=== PATIENT | male | born 1995 | race Caucasian/White ===

== ENCOUNTER 2018-11-17 11:42 | Emergency (ER) | payer OTHER, SELFPAY ==
[2018-11-17] VITALS (32 sets, daily range): BP systolic 117–150; BP diastolic 50–83; PULSE 61–87; RESP 10–27; TEMP 37; O2SAT 94–100
--- NOTE | 2018-11-17 12:04 | DI.CT_ITS ---
EXAM: CT HEAD WO CLINICAL HISTORY: altered mentation. TECHNIQUE: Imaging Protocol: Axial computed tomography images with coronal and sagittal reformatted images were created and reviewed COMPARISON: No exams were available for comparison FINDINGS: The ventricular system is normal in appearance. No evidence of acute intracranial hemorrhage, mass effect, or midline shift. The orbital structures are unremarkable. The temporal bone structures appear intact. Calvarium: Normal. Visualized Paranasal sinuses/Mastoids: Clear. IMPRESSION: Normal cranial CT. DATA REPOSITORY: All CT scans at this facility are submitted to the National Radiology Data Registry (NRDR) Dose Index Registry (DIR) with the [employer] (A[employer]). RADIATION OPTIMIZATION: All CT scans at this facility use at least one of these dose optimization te chniques: automated exposure control; mA and/or kV adjustment per patient size (includes targeted exa ms where dose is matched to clinical indication); or iterative reconstruction.
--- NOTE | 2018-11-17 12:04 | DI.RAD_ITS ---
EXAM: XR PORTABLE CHEST AP INDICATION: altered mentation, post 2 chest compression. COMPARISON: No exams were available for comparison TECHNIQUE: 2D digital imaging was performed. FINDINGS: The heart is not enlarged. The lungs are clear and expanded. No pleural effusion seen. No pneumoth orax seen. IMPRESSION: No evidence of acute process.
--- NOTE | 2018-11-17 12:09 | NUR.NOTE ---
12:10 patient not speaking due to pain. Throat red. Minimal redness to neck.
[2018-11-17 12:19] LABS: Abs Immature Grans 0.01 k/cumm (0.0-0.09); Absolute Basophil Count 0.02 k/cumm (0.0-0.2); Absolute Eosinophil Count 0.05 k/cumm (0.0-0.7); Absolute Lymphocyte Count 1.25 k/cumm (1.2-3.4); Absolute Monocyte Count 0.42 k/cumm (0.11-0.7); Absolute Neutrophil Count 3.33 k/cumm (1.2-6.7); Basophils % 0.4; HCT 47.9 % (40.0-50.0); HGB 16.6 g/dL (13.5-17.5); Immature Grans % 0.2; Lymphocytes % 24.6; Mean Corp. HGB Concentration 34.7 g/dL (32.0-36.0); Mean Corpuscular Volume 86.5 fL (80-95); Mean Platelet Volume 9.5 fL (8.0-11.0); Monocytes % 8.3; Neutrophils % 65.5; Platelet Count 221 x1000/uL (130-400); RBC 5.54 m/cumm (4.50-6.00); White Blood Cell Count 5.08 k/cumm (4.4-10.8)
[2018-11-17 12:34] LABS: ALT 17 U/L (16-63); AST 20 U/L (15-37); Alkaline Phosphatase 124 U/L (46-116); BUN 15 mg/dL (7-18); CREATININE 0.76 mg/dL (0.70-1.30); Calcium 9.7 mg/dL (8.5-10.1); Chloride 99 mmol/L (98-107); Glucose 82 mg/dL (70-100); Magnesium 2.3 mg/dL (1.8-2.4); Potassium 4.2 mmol/L (3.5-5.1); Sodium 139 mmol/L (136-145); Total Protein 8.9 g/dL (6.4-8.2)
[2018-11-17 12:35] LABS: Troponin I < 0.05 ng/mL (0.00-0.06)
--- NOTE | 2018-11-17 12:37 | DI.CT_ITS ---
EXAM: CT CAROTID NECK CTA CLINICAL HISTORY: neck pain, attempted strangulation. TECHNIQUE: CT angiography of the cervical region was performed with intravenous infusion of 85 cc of Omnipaque 350. Axial CT angiography was performed with multi-slice acquisition and multi-planar and/or 3D reconstruc tions. COMPARISON: No exams were available for comparison FINDINGS: Visualized lung apices are clear. Aortic arch appears normal. Visualized pulmonary arterial circulati on. No mediastinal or cervical hematoma. No fracture identified in the region surveilled. No cervical mass or adenopathy. Tracheolaryngeal structures appear intact. Visualized portions of the brain are unremarkable. Right common internal and external carotid artery are within normal limits. Right and left vertebral arteries and basilar artery are within normal limits. Visualized intracranial portions of both ICAs a re normal. Visualized portions of anterior middle and posterior cerebral arteries are normal. Left common carotid artery is normal. There is peripheral area of decreased attenuation measuring abo ut 2 millimeters in thickness extending over approximately the first 1.5 cm of the proximal left inte rnal carotid artery, the possibility of a dissection at this site is raised. No additional dissection identified. IMPRESSION: Findings raising the possibility of a minimal 2 millimeter thick dissection of proximal left internal carotid artery. No resultant luminal stenosis seen.
--- NOTE | 2018-11-17 13:12 | NUR.NOTE ---
Nursing Note: pt wrote on paper and communicated to Jaylen LABOY that he wants us to give him an insulin overdose before he is transferred to [facility]. Pt states he will get it done there.
[2018-11-17 13:38] LABS: *AMPHETAMINES SCREEN URINE Negative (Negative); *BARBITURATES SCREEN URINE Negative (Negative); *BENZODIAZEPINES SCREEN URINE Negative (Negative); Cannabinoids THC POSITIVE (Negative); Cocaine Screen,Urine Negative (Negative); METHADONE URINE SCREEN Negative (Negative); OPIATES URINE SCREEN Negative (Negative)
[2018-11-17] MEDS: Omnipaque 350 MG/ML 100 ML BTL IV (13:39)
--- NOTE | 2018-11-17 13:50 | W.ED.GENAD ---
Discharge Plan Disposition Patient Disposition: [facility] Condition: Serious Discharge Details Chief Complaint: AMS/LOC Clinical Impression: Suicidal ideation, Suicide attempt, Carotid artery dissection Primary Care Provider: Sonali,Local ED Provider: Camilo Luong Home Meds and New Rx's Prescriptions: No Action Unable to Obtain RF: 0 Discharge Data Discharge Date/Time-TO BE ENTERED AT DEPARTURE: 11/17/18 15:30 Medical Decision Making 23-year-old male here with suicidal ideation after attempted hanging, complaining of neck pain and pain when attempts to speak. Neck is tender without ecchymosis or swelling. Patient probably was unresponsive and questionable pulseless -iron guardrail installer provided to chest compressions and patient responded. Patient is minimally cooperative with exam.. Neurologic exam limited. CT of the head was interpreted by radiology: Negative. CTA of the neck was interpreted by radiology: 2mm left internal carotid dissection 1.5 cm from the origin. Labs reviewed. UDS positive for THC. Patient is suicidal. Patient will have one-to-one observation. He remains in police custody in please handcuffs. 14:00 -- I [place] [facility] [place] and possible transfer with vascular surgery. 14:30 --I spoke with Dr. Hill, vascular surgeon at [facility] [place] discussed ED presentation and course including diagnostics. She reviewed CTA, she requests that patient be transferred for additional diagnostics. She will accept the patient in transfer. 14:40 --patient now more cooperative with history and exam. He notes that he did attempt to hang himself today with a towel from a vent and towel snapped. He is suicidal. He denies any focal weakness or numbness. Lab Data Lab results reviewed: Yes I reviewed the patient's lab results. ECG Data Attestation: I personally reviewed and interpreted this ECG (s) as follows: (Normal sinus rhythm 78 bpm, normal axis, peaked appearance to T waves in lead V3 and V4, nondiagnostic) HPI General Mode of arrival: ambulatory. Date/Time Provider Initiated Documentation: 11/17/18 11:47. Limitations to Documentation: language barrier and altered mental status. Information obtained by: patient. HPI Narrative: 32-year-old male presents with [facility] staff here with altered mental status. History and review of systems limited secondary to altered mental status. There is questionable history of psychiatric illness. Patient is not currently medicated. According to [facility] staff a guard found the patient next to his bed with a towel wrapped around his neck and the towel tucked under his mattress. He was unresponsive. The responding guard gave 2 rescue breaths and to chest compressions and then apparently the patient responded. Patient does not been speaking because it hurts to talk - patient writes this on paper. Related Data Home Medications Medication Instructions Recorded Confirmed Unknown [Unable to Obtain] 11/17/18 11/17/18 Allergies Allergy/AdvReac Type Severity Reaction Status Date / Time No Known Allergies Allergy Unverified 11/17/18 11:52 General Stated Complaint: AMS/LOC TREMAINE: 2 Review of Systems Review of Systems ROS Unobtainable: Unobtainable due to mental status [facility] Social History Smoking/Tobacco Use Status: Unknown Substance use type: unknown Additional Social history: unable to obtain Exam Const General: no acute distress HENMT Head: normocephalic and atraumatic Mouth: moist mucous membranes Eyes Conjunctivae: normal conjunctivae Sclera: normal sclerae EOM: EOM intact bilaterally Neck Neck: trachea midline, supple and other (tender bilateral neck, no swelling, no ecchymosis ) Resp Auscultation: clear to auscultation bilaterally, no rales, no rhonchi and no wheezes Cardio Jugular venous pressure: no JVD Rate: regular rate and not tachycardic Rhythm: regular rhythm GI Palpation: soft, not firm, no guarding, no masses, not rigid and nontender Skin General skin exam: no rashes or lesions noted Trauma: other (No ligature schmidt) Neuro General: alert, awake, tone normal and other (limited, Drew) Extrem General: no edema Psych Mood: anxious mood Affect: anxious affect Attitude: refuses to answer Course Vital Signs Vital signs: Vital Signs Pulse Oximetry 100 11/17/18 11:36 Temperature 37.0 C 11/17/18 11:44 Pulse 78 11/17/18 12:45 Pulse 72 11/17/18 12:50 Respiratory Rate 16 11/17/18 12:26 Respiratory Effort Non-Labored 11/17/18 12:26 Respiratory Depth Normal 11/17/18 12:26 Respiratory Pattern Normal 11/17/18 12:26 Blood Pressure 131/73 11/17/18 12:45 Blood Pressure Mean 88 11/17/18 12:45 Blood Pressure Position Supine 11/17/18 11:44 Pulse Oximetry 96 11/17/18 12:40 Oxygen Delivery Method Room Air 11/17/18 11:44 Oxygen Flow Rate 0 11/17/18 11:44 Comment 11/17/18 11:44 Lab/Test Results Lab/Test Results: Laboratory Tests Range/Units 11/17/18 11/17/18 11:45 11:45 WBC (4.4-10.8) k/cumm 5.08 RBC (4.50-6.00) m/cumm 5.54 Hgb (13.5-17.5) g/dL 16.6 Hct (40.0-50.0) % 47.9 MCV (80-95) fL 86.5 MCH (27.0-33.0) pg 30.0 MCHC (32.0-36.0) g/dL 34.7 RDW (11.8-14.1) % 12.0 Plt Count (130-400) x1000/uL 221 MPV (8.0-11.0) fL 9.5 Immature Gran % 0.2 Neutrophils % 65.5 Lymphocytes % 24.6 Monocytes % 8.3 Eosinophils % 1.0 Basophils % 0.4 Absolute Neutrophils (1.2-6.7) k/cumm 3.33 Absolute Lymphocytes (1.2-3.4) k/cumm 1.25 Absolute Monocytes (0.11-0.7) k/cumm 0.42 Absolute Eosinophils (0.0-0.7) k/cumm 0.05 Absolute Basophils (0.0-0.2) k/cumm 0.02 Sodium (136-145) mmol/L 139 Potassium (3.5-5.1) mmol/L 4.2 Chloride (98-107) mmol/L 99 Carbon Dioxide (21.0-32.0) mmol/L 28.0 Anion Gap (3-11) mmol/L 12.0 H BUN (7-18) mg/dL 15 Creatinine (0.70-1.30) mg/dL 0.76 Estimated GFR/1.73 m2 (mL/min/1.73m2) >= 60.00 Glucose (70-100) mg/dL 82 Calcium (8.5-10.1) mg/dL 9.7 Magnesium (1.8-2.4) mg/dL 2.3 Total Bilirubin (0.2-1.0) mg/dL 1.0 AST (15-37) U/L 20 ALT (16-63) U/L 17 Alkaline Phosphatase (46-116) U/L 124 H Troponin I (0.00-0.06) ng/mL < 0.05 Total Protein (6.4-8.2) g/dL 8.9 H Albumin (3.4-5.0) g/dL 5.0
[2018-11-17 13:54] LABS: Tricyclic Antidepressants Negative (Negative)
--- NOTE | 2018-11-17 15:49 | NUR.NOTE ---
Nursing Note: Labs, radiology reports, EKG and MD note faxed [facility]. Alicia Obregon.
== END 2018-11-17 15:30 | disposition short-term general hospital (02) ==
PROVIDERS: Emergency Provider Student in an Organized Health Care Education/Training Program
DX: I77.71 Dissection of carotid artery (principal); T14.91XA Suicide attempt, initial encounter; R45.851 Suicidal ideations
CPT/HCPCS: 36415; 70498; 80053; 80307; 93005; 99285; 70450; 71045; 83735; 84484; 85025; 93010; J3490